=== PATIENT | female | born 1990 | race Two or more races ===

== ENCOUNTER 2025-01-28 06:45 | Day surgery (SDC) | payer BC, SELFPAY ==
[2025-01-27 09:26] VITALS: BMI 25.4
[2025-01-27 09:53] LABS: Collection Type, Urine Clean Catch
[2025-01-27 11:40] LABS: Basophils # (Auto) 0.1 Thou/mm3 (0.0-0.2); Basophils % (Auto) 1 % (0-2.5); Eosinophils # (Auto) 0.2 Thou/mm3 (0.0-0.5); Eosinophils % (Auto) 3 % (0-10); Hemoglobin 11.4 g/dL (12.0-16.0); Immature Granulocytes % (Auto) 0 % (0-0); Immature Granulocytes Auto 0.03 Thou/mm3 (0.00-0.00); Lymphocytes # (Auto) 2.4 Thou/mm3 (1.0-4.8); Lymphocytes % (Auto) 28 % (10-50); Mean Corpuscular HGB Conc 31.7 g/dl (31.0-37.0); Mean Corpuscular Volume 82 fL (80-100); Monocytes # (Auto) 0.5 Thou/mm3 (0.0-0.8); Monocytes % (Auto) 6 % (0-12); Neutrophils # (Auto) 5.5 Thou/mm3 (1.8-7.7); Neutrophils % (Auto) 63 % (37-80); Nucleated Red Blood Cell % 0 /100 WBC (0); Platelet Count 409 Thou/mm3 (140-440); RDW Standard Deviation 41.1 fL (36.4-46.3); Red Blood Count 4.38 Miln/mm3 (4.00-5.20); White Blood Count 8.7 Thou/mm3 (3.6-11.0)
[2025-01-27 11:45] LABS: HCG Qualitative,Urine Negative
[2025-01-27 11:47] LABS: Bilirubin,Urine Negative (Negative); Blood,Urine Negative (Negative); Clarity,Urine Clear (Clear/Hazy); Color,Urine Colorless (Lt Yel-Yel); Glucose, Urine Negative (Negative); Ketones,Urine Negative (Negative); Leukocyte Esterase,Urine Negative (Negative); Nitrite,Urine Negative (Negative); PH,Urine 5.5 (5.0-7.0); Protein,Urine Negative (Neg - Trace); RBC,Urine 2 /hpf (0-3); Specific Gravity,Urine 1.012 (1.001-1.035); Squamous Epithelial Cell,Urine < 1 /hpf (0-5); Urobilinogen,Urine Negative mg/dL (0.0-1.0); WBC,Urine 1 /hpf (0-5)
[2025-01-27 11:57] LABS: Anion Gap 8 (7-16); BUN/Creatinine Ratio 10 Ratio (12-20); Blood Urea Nitrogen 8 mg/dL (9-23); Calcium 9.7 mg/dL (8.3-10.6); Carbon Dioxide 26.7 mMol/L (20.0-31.0); Chloride 104 mMol/L (98-107); Creatinine (Component) 0.8 mg/dL (0.6-1.3); Estimated Creatinine Clearance 94.2 mL/min (>60); Glucose 97 mg/dL (74-106); Osmolality,Calculated 275 (275-295); Potassium 4.3 mMol/L (3.4-5.1); Sodium 139 mMol/L (136-145); eGFR > 60 See Note
[2025-01-28] VITALS (7 sets, daily range): BP systolic 103–129; BP diastolic 58–92; PULSE 70–88; RESP 12–21; TEMP 36.2–36.6; O2SAT 97–99; BMI 25.5
[2025-01-28] MEDS: RINGERS LACTATED 1000 ML 1,000 ML 20 ML IV (07:20)
--- NOTE | 2025-01-28 09:49 | SUR.PHASEI ---
pt received from OR in recovery bay 1. pt obtunded, breathing unlabored on oxymask 6l, oral airway in place. v/s stable. pt dressing peripad cdi. report received from [place] [facility] and [place] [facility].
--- NOTE | 2025-01-28 09:57 | PD.GYNPROC ---
Operative Note - PHOTOGRAPHY COORDINATOR Procedure Date of procedure: 01/28/25 Procedure Performed: hysteroscopy with endometrial polypectomy and endometrial curettage (D&C) with Myosure Indication: endometrial polyps / dysmenorrhoea Pre-Op diagnosis: endometrial polyps , dysmenorrhoea Post-Op diagnosis: same Anesthesia type: General Procedure description: after an informed consent , patient brought to OR and received General anesthesia and is in dorsolithotomy position after that and prepped and draped in the usual sterile fashion. Time out done , bladder drained by [place]. Then a pelvic exam shows a normal cervix, anteverted uterus and normal adnexa A Gooseneck speculum placed posteriorly in the vagina and anteriorly a youngblood speculum and anterir lip of cervix held with a single tooth speculum, uterus sounded to 8 cm . cervical os gradually dilated to 8 mm and then hysteroscope introduced and multiple polyps seen and R ostia seen and left could not be seen Pictures taken Then myosure reach introduced and the polyps are nibbled away , safely, the pictures taken again. The now the left ostia is also seen . the procedure then completed . uterine cavity is intact . hysteroscope withdrawn. and bleeding is minimal . instruments and sponge count is correct deficit is 120 cc . fluid used used is normal saline. Specimen: other (endometrial polyps fragmented and also endometrial curettings ) Estimated blood loss (ml): 10 Complications: none Narrative: see procedure Surgical staff Operation Date: 01/28/25 08:45 Case Staff Anesthesiologist: Mejia Samaniego RN First Assistant: Sharita Valencia Diagnosis Discharge Diagnosis (1) Endometrium, polyp: Status: Acute Problem details: removed today (2) Dysmenorrhea: Status: Acute Problem details: ongoing Problem List Completed Was Problem List Reviewed/Reconciled?: Yes
--- NOTE | 2025-01-28 10:27 | SUR.PHASEII ---
pt able to tolerate oral fluids without difficulty swallowing or nausea/vomiting.
--- NOTE | 2025-01-28 10:55 | SUR.PHASEII ---
pt awake and alert, breathing unlabored on room air. v/s stable. pt dressing peripad cdi. pt able to ambulate to wheelchair with steady gait. d/c instructions given with in room, all questions answered. pt d/c via wheelchair with all belongings.
== END 2025-01-28 10:55 | disposition home or self-care (01) ==
PROVIDERS: Student in an Organized Health Care Education/Training Program; PCP Obstetrics & Gynecology; Referring Provider Obstetrics & Gynecology; Visit Provider Obstetrics & Gynecology
PROC: 0U5B8ZZ Destruction of Endometrium, Via Natural or Artificial Opening Endoscopic (ICD-10-PCS; CPT 58563; principal; 2025-01-28 08:45)
DX: N84.0 Polyp of corpus uteri (principal)
CPT/HCPCS: 58558; 36415; 80048; 81001; 81025; 85025; A4217; A4649; J0131; J0690; J1100; J1885; J2250; J2371; J2405; J2704; J3010; J7120